=== PATIENT | female | born 1985 | race Caucasian/White ===

== ENCOUNTER 2017-04-08 21:04 | Emergency (ER) | payer MEDICAID ==
[~2017-04-08] VITALS: Ht 172.7 cm; Wt 120.2 kg
[~2017-04-08 21:04] MED LIST: CLON-365 PO
[2017-04-08 21:09] VITALS: BP 154/97
== END 2017-04-08 23:30 | disposition home or self-care (01) ==
LOC: ED 23:23
DX: J20.8 Acute bronchitis due to other specified organisms (principal); S09.90XA Unspecified injury of head, initial encounter; G43.909 Migraine, unspecified, not intractable, without status migrainosus; E78.00 Pure hypercholesterolemia, unspecified; B96.89 Other specified bacterial agents as the cause of diseases classified elsewhere; Z88.0 Allergy status to penicillin; X58.XXXA Exposure to other specified factors, initial encounter; Y93.89 Activity, other specified; Y92.89 Other specified places as the place of occurrence of the external cause; Y99.8 Other external cause status
CPT/HCPCS: 70450; 71020; 93005; 99284

== ENCOUNTER 2017-04-13 16:01 | Emergency (ER) | payer MEDICAID ==
[~2017-04-13] VITALS: Ht 172.7 cm; Wt 118.0 kg
[2017-04-13 16:09] VITALS: BP 141/99
== END 2017-04-13 17:20 | disposition home or self-care (01) ==
LOC: ED 17:03
DX: K08.89 Other specified disorders of teeth and supporting structures (principal); E78.00 Pure hypercholesterolemia, unspecified
CPT/HCPCS: 99283